=== PATIENT | female | born 1940 | race Caucasian/White ===

== ENCOUNTER 2017-03-06 12:17 | Emergency (ER) | payer SELFPAY ==
[~2017-03-06] VITALS: Ht 149.9 cm; Wt 50.0 kg
[2017-03-06 14:32] VITALS: BP 159/82
== END 2017-03-06 14:33 | disposition home or self-care (01) ==
LOC: ER 12:17
DX: S20.211A Contusion of right front wall of thorax, initial encounter (principal); W19.XXXA Unspecified fall, initial encounter; Y93.89 Activity, other specified; Y92.488 Other paved roadways as the place of occurrence of the external cause; Y99.8 Other external cause status
CPT/HCPCS: 71010; 93005; 99284

== ENCOUNTER 2019-09-23 13:13 | Emergency (ER) | payer SELFPAY ==
[~2019-09-23] VITALS: Ht 149.9 cm; Wt 50.0 kg
[2019-09-23] MEDS ORDERED: TETANUS, DIPHTHERIA, PERTUSSIS VAC/PF 0.5ML (>7YR OLD) IM ONE (14:00)
[2019-09-23] MEDS ORDERED: AMOXICILLIN/POTASSIUM CLAVULANATE 875/125MG TAB PO ONE (14:30)
[2019-09-23] MEDS ORDERED: ACETAMINOPHEN WITH CODEINE 300/30MG TABLET PO ONE (14:30)
[2019-09-23] MEDS: IBUPROFEN 600MG TABLET PO ONE ×2 (14:40→15:22)
[2019-09-23 15:58] VITALS: BP 130/61
== END 2019-09-23 16:07 | disposition home or self-care (01) ==
LOC: ER 13:13
DX: S62.300A Unspecified fracture of second metacarpal bone, right hand, initial encounter for closed fracture (principal); S61.411A Laceration without foreign body of right hand, initial encounter; S51.811A Laceration without foreign body of right forearm, initial encounter; S61.451A Open bite of right hand, initial encounter; W54.0XXA Bitten by dog, initial encounter; Y93.9 Activity, unspecified; Y92.89 Other specified places as the place of occurrence of the external cause; Y99.8 Other external cause status
CPT/HCPCS: 73130; 90471; 90715; 99284